=== PATIENT | female | born 1975 | race Caucasian/White ===

== ENCOUNTER → 2018-04-29 | Outpatient (CLI) | payer OTHER | END | disposition home or self-care (01) | LOC: OIH 13:13 | PROVIDERS: ATTEND Nurse Practitioner Adult Health | DX: Z13.6 Encounter for screening for cardiovascular disorders (principal) | CPT/HCPCS: 75571 ==

== ENCOUNTER → 2019-02-04 | Outpatient (CLI) | payer BC | END | disposition home or self-care (01) | LOC: RAH 14:11 | PROVIDERS: ATTEND Nurse Practitioner Adult Health | DX: R19.03 Right lower quadrant abdominal swelling, mass and lump (principal); Z90.710 Acquired absence of both cervix and uterus | CPT/HCPCS: 76856 ==